=== PATIENT | female | born 1985 | race Caucasian/White ===

== ENCOUNTER 2024-05-09 08:47 | Outpatient (CLI) | payer BC, SELFPAY ==
[2024-05-09 15:11] LABS: Bacterial Vaginosis* Negative (Negative); Candida glab/krus NOT DETECTED (No Detected); Candida species DETECTED (No Detected); Trichomonas vaginalis NOT DETECTED (No Detected)
== END 2024-05-09 08:48 | disposition home or self-care (01) ==
LOC: FRMREF 08:47
PROVIDERS: PCP Physician Assistant Medical; Visit Provider Obstetrics & Gynecology
DX: N90.89 Other specified noninflammatory disorders of vulva and perineum (principal)
CPT/HCPCS: 81513; 87481; 87661

== ENCOUNTER 2024-06-05 07:45 | Day surgery (SDC) | payer BC, SELFPAY ==
[2024-06-05] VITALS (15 sets, daily range): BP systolic 86–119; BP diastolic 43–75; PULSE 49–73; RESP 11–18; TEMP 36.8–37.6; O2SAT 98–100; BMI 26.2
[2024-06-05] MEDS: LACTATED RINGERS 1000 ML 1,000 ML 100 ML IV (07:45)
[2024-06-05 08:14] LABS: Ur HCG Qualitative* Negative (Negative)
--- NOTE | 2024-06-05 08:17 | W.PM.H&PU ---
History & Physical Update History & Physical Update H&P Reviewed and patient assessed: No changes noted
--- NOTE | 2024-06-05 08:17 | PM.PROC ---
Procedure Note Time Seen by Provider: 09:44 Date Seen: 06/05/24 Date of procedure: 06/05/24 Will [facility] bill your pro fee for this procedure?: Yes Procedure: Preoperative diagnosis: 39-year-old 3 para 3 with undesired fertility. Postoperative diagnosis: Same. Procedure: IUD removal, Laparoscopic bilateral salpingectomy Anesthesia: General endotracheal, local. Surgeon: Brittney Avery MD Agency Sales Representative: Not applicable Estimated blood loss: 10 mL Urine output: 100 mL clear urine IV Fluid: 700 ml Specimen: Bilateral fallopian tubes to pathology. Findings: On exam under anesthesia: The uterus was anteverted, less than 10 week size, mobile, without masses or nodularity palpable. Adnexa were without mass or fullness bilaterally. The uterus sounded to 9 cm. On laparoscopy: The uterus, bilateral fallopian tubes and ovaries all appeared normal. Normal appendix, liver edge and gallbladder. Minimal scarring in the pelvis from her previous 3 C sections. Procedure: Patient was taken to the operating room where general anesthetic was found to be adequate. She was placed in the dorsal lithotomy position and an exam under anesthesia was performed with findings stated above. She was then prepped and draped in a normal sterile manner. A Matthews catheter was then placed. A bivalve speculum was then placed in the vaginal canal to visualize the cervix. The anterior lip of the cervix was grasped with an a long Allis clamp. The IUD strings were originally not visualized and the cervix appeared somewhat stenotic. The cervix was then dilated with small Paul cervical dilators and after dilation the IUD strings were visualized to be protruding from the os by about 1 cm. The IUD strings were visualized, grasped with a ring forceps. The cervix was dilated to Hegar 6. Uterus was sounded to 9 cm. A Independent IP uterine manipulator was then placed. Attention was then turned to performing the laparoscopic portion of the procedure. All incisions were injected with 0.5% Marcaine prior to incision. A vertical 5 mm infraumbilical, incision, was made and a 5 mm trocar placed under direct visualization with the laparoscope. The abdomen was then insufflated with carbon dioxide gas to a pressure of 15 mm of mercury. Two, 5 mm trocars were then placed under direct visualization. One was placed in the left lower quadrant, 3-4 finger breaths medial to the ischial crests. The other was placed approximately 5 cm lateral to the umbilicus in the left mid quadrant. A diagnostic laparoscopy was then performed with findings stated above. The left fallopian tube was grasped with a sliding grasper. The left fallopian tube was removed from the broad ligament using the Halo dissecting forceps starting at the fimbriated end of the tube. Sequential pedicles were then formed to the level of the cornua. The tube was then removed at the cornua and removed from the abdomen through one of the ports. The right fallopian tube was removed in a similar manner. Excellent hemostasis was noted of all pedicles. The trocars were then removed under direct visualization. The CO2 gas was allowed to escape the infraumbilical port prior to its removal. All incisions were reapproximated using 4-0 Vicryl in a running subcuticular manner. Exophin skin adhesive was then applied over each incision. The uterine manipulator and Matthews catheter were removed. The patient tolerated this procedure well. Sponge, lap and instrument counts were correct x2 at the end of the procedure and the patient was taken to the recovery area in stable condition. Patient received 30 mg IV Toradol prior to being awakened from anesthesia.
[2024-06-05] MEDS: SODIUM CHLORIDE 0.9 % (FLUSH) 10 ML SYRINGE IVF (08:22)
[2024-06-05 08:24] LABS: Hemoglobin* 12.2 gm/dL (12.0-16.0)
[2024-06-05] MEDS: BUPIVACAINE 0.5% 30 ML INJECTION (09:20)
--- NOTE | 2024-06-05 09:50 | P.ANES_ITS ---
Anesthesia Charges Start Date/Time Anesthesia Start Date: 06/05/24 Anesthesia Start Time: 08:43 Stop Date/Time Anesthesia Stop Date: 06/05/24 Anesthesia Stop Time: 09:47 Coding CPT Codes CPT Codes: ANESTH SURG LOWER ABDOMEN - 87548 ([id number]) P2 - PATIENT W/MILD SYST DISEASE, QK - DYNAMOMETER TESTER 2-4 CNCRNT ANES PROC, QX - PIERCING SPECIALIST SVC W/ MD MED DIRECTION
--- NOTE | 2024-06-05 09:50 | W.ANESCHARGE ---
Anesthesia Charges Start Date/Time Anesthesia Start Date: 06/05/24 Anesthesia Start Time: 08:43 Stop Date/Time Anesthesia Stop Date: 06/05/24 Anesthesia Stop Time: 09:47 Coding CPT Codes CPT Codes: ANESTH SURG LOWER ABDOMEN - 60227 ([id number]) P2 - PATIENT W/MILD SYST DISEASE, QK - MENTAL HEALTH PRACTITIONER 2-4 CNCRNT ANES PROC, QX - DIESEL MECHANIC FARM SVC W/ MD MED DIRECTION
[2024-06-05] MEDS: fentaNYL 100 MCG/2 ML inj 50 MCG IVP ×2 (09:57→10:07)
--- NOTE | 2024-06-05 09:59 | P.ANES_ITS ---
Anesthesia Charges Start Date/Time Anesthesia Start Date: 06/05/24 Anesthesia Start Time: 08:43 Stop Date/Time Anesthesia Stop Date: 06/05/24 Anesthesia Stop Time: 09:47 Coding CPT Codes CPT Codes: ANESTH SURG LOWER ABDOMEN - 26070 ([id number]) P2 - PATIENT W/MILD SYST DISEASE, QK - LOAD DISPATCHER LOCAL 2-4 CNCRNT ANES PROC, QX - MEDICAID BILLER SVC W/ MD MED DIRECTION
--- NOTE | 2024-06-05 09:59 | W.ANESCHARGE ---
Anesthesia Charges Start Date/Time Anesthesia Start Date: 06/05/24 Anesthesia Start Time: 08:43 Stop Date/Time Anesthesia Stop Date: 06/05/24 Anesthesia Stop Time: 09:47 Coding CPT Codes CPT Codes: ANESTH SURG LOWER ABDOMEN - 39505 ([id number]) P2 - PATIENT W/MILD SYST DISEASE, QK - COLLATOR OPERATOR 2-4 CNCRNT ANES PROC, QX - ASSOCIATE MEDICAL DIRECTOR SVC W/ MD MED DIRECTION
[2024-06-05] MEDS: OXYCODONE 5 MG TABLET PO (10:54)
== END 2024-06-05 11:45 | disposition home or self-care (01) ==
LOC: OR 07:45
PROVIDERS: PCP Physician Assistant Medical; Visit Provider Obstetrics & Gynecology
PROC: (CPT 58661; principal; 2024-06-05 09:00)
DX: Z30.2 Encounter for sterilization (principal); Z30.432 Encounter for removal of intrauterine contraceptive device
CPT/HCPCS: 58301; 58661; 00840; 36415; 81025; 85018; 86850; 86900; 86901; 88302; A9270; J0665; J1100; J1885; J2250; J2405; J2704; J2710; J3010; J7120

== ENCOUNTER 2024-08-09 11:31 | Outpatient (CLI) | payer BC, SELFPAY | END 2024-08-09 11:32 | disposition home or self-care (01) | LOC: FRMREF 11:31 | PROVIDERS: PCP Physician Assistant Medical; Visit Provider Registered Nurse | DX: F52.0 Hypoactive sexual desire disorder (principal) | CPT/HCPCS: 84270; 84402; 84403 ==

== ENCOUNTER 2024-09-03 08:09 | Outpatient (CLI) | payer BC, SELFPAY | END 2024-09-03 08:10 | disposition home or self-care (01) | LOC: NFLDREF 09-05 01:58 | PROVIDERS: PCP Physician Assistant Medical; Referring Provider Physician Assistant Medical; Visit Provider Physician Assistant Medical | DX: R79.89 Other specified abnormal findings of blood chemistry (principal); Z13.9 Encounter for screening, unspecified | CPT/HCPCS: 80076; 84443 ==

== ENCOUNTER 2025-02-18 11:31 | Outpatient (CLI) | payer BC, SELFPAY ==
--- NOTE | 2025-02-18 12:19 | P.ANES_ITS ---
Anesthesia Charges Start Date/Time Anesthesia Start Date: 02/18/25 Anesthesia Start Time: 12:08 Stop Date/Time Anesthesia Stop Date: 02/18/25 Anesthesia Stop Time: 12:20 Coding CPT Codes CPT Codes: ANES UPR GI NDSC PX NOS - 52496 ([id number]) P2 - PATIENT W/MILD SYST DISEASE, QX - CAR RENTAL AGENT SVC W/ MD MED DIRECTION, QK - HAIR ASSISTANT 2-4 CNCRNT ANES PROC
--- NOTE | 2025-02-18 12:19 | W.ANESCHARGE ---
Anesthesia Charges Start Date/Time Anesthesia Start Date: 02/18/25 Anesthesia Start Time: 12:08 Stop Date/Time Anesthesia Stop Date: 02/18/25 Anesthesia Stop Time: 12:20 Coding CPT Codes CPT Codes: ANES UPR GI NDSC PX NOS - 74733 ([id number]) P2 - PATIENT W/MILD SYST DISEASE, QX - LONG TERM ACUTE CARE REGISTERED NURSE SVC W/ MD MED DIRECTION, QK - ENTERPRISE INTEGRATION ARCHITECT 2-4 CNCRNT ANES PROC
--- NOTE | 2025-02-18 13:02 | P.ANES_ITS ---
Anesthesia Charges Start Date/Time Anesthesia Start Date: 02/18/25 Anesthesia Start Time: 12:08 Stop Date/Time Anesthesia Stop Date: 02/18/25 Anesthesia Stop Time: 12:20 Coding CPT Codes CPT Codes: ANES UPR GI NDSC PX NOS - 06486 ([id number]) QK - VIDEO CAMERA OPERATOR 2-4 CNCRNT ANES PROC, QX - DEALERSHIP MANAGER SVC W/ MD MED DIRECTION, P2 - PATIENT W/MILD SYST DISEASE
--- NOTE | 2025-02-18 13:02 | W.ANESCHARGE ---
Anesthesia Charges Start Date/Time Anesthesia Start Date: 02/18/25 Anesthesia Start Time: 12:08 Stop Date/Time Anesthesia Stop Date: 02/18/25 Anesthesia Stop Time: 12:20 Coding CPT Codes CPT Codes: ANES UPR GI NDSC PX NOS - 86779 ([id number]) QK - TRANSPLANTER ORCHID 2-4 CNCRNT ANES PROC, QX - JIGMAN SVC W/ MD MED DIRECTION, P2 - PATIENT W/MILD SYST DISEASE
== END 2025-02-18 11:32 | disposition home or self-care (01) ==
LOC: OP CLINIC 11:32
PROVIDERS: PCP Physician Assistant Medical; Visit Provider Surgery
DX: K21.9 Gastro-esophageal reflux disease without esophagitis (principal); Z98.84 Bariatric surgery status
CPT/HCPCS: 00731; 43239; J2704